=== PATIENT | male | born 1990 | race African-American/Black ===

== ENCOUNTER 2016-11-09 12:54 | Outpatient (CLI) | payer OTHER ==
[2016-11-09] MEDS ORDERED: IOTHALAMATE MEGLUMINE 50 ML VIAL IVP ONE (14:16)
[2016-11-09] MEDS ORDERED: GADOPENTETATE DIMEGLUMINE 5 ML VIAL IVP ONE (14:16)
[2016-11-09] MEDS ORDERED: BUFFERED LIDOCAINE 10 ML SYRINGE IU ONE (14:16)
[2016-11-09] MEDS ORDERED: LIDOCAINE 1% 50 ML MDV SUBQ ONE (14:16)
--- NOTE | 2016-11-09 16:18 | XRAY Report ---
FLUOROSCOPICALLY GUIDED LEFT SHOULDER INJECTION FOR MR ARTHROGRAM: 11/09/2016 CLINICAL INDICATION: History of dislocations, persistent pain. FINDINGS: Following obtaining informed consent, the patient's left shoulder was prepped and draped i n the usual sterile fashion. The skin and soft tissues were anesthetized with lidocaine. A spinal nee dle was directed into the left glenohumeral joint, and following confirmation of needle positioning, a combination of Iodinated contrast, dilute gadolinium, and lidocaine was injected intraarticularly. The patient tolerated the procedure well. No immediate complications. Spot image reveals no evidence of contrast extravasation. IMPRESSION: SUCCESSFUL LEFT SHOULDER INJECTION FOR MR ARTHROGRAM. FLUOROSCOPY TIME: 25 SECONDS; 1 SPOT IMAGE OBTAINED. JOB #: [id number] EXT JOB #:[id number]
--- NOTE | 2016-11-09 16:54 | MRI Report ---
EXAM: LEFT SHOULDER MRI ARTHROGRAM WITH CONTRAST EXAM DATE: 11/09/2016 03:14 PM. CLINICAL HISTORY: Left shoulder pain. Previous dislocation injury in 2012. COMPARISON: Left shoulder radiography from 01/10/2013 and left shoulder MRI arthrogram from 3. TECHNIQUE: Multiplanar, multisequence T1-weighted and fluid-sensitive sequences of the shoulder after an arthrographic injection of dilute gadolinium, dictated under a separate exam. Other: None. FINDINGS: Acromioclavicular Region: The acromion is type II. The acromioclavicular joint is unremarkable. The c oracoacromial and coracoclavicular ligaments are intact. There is no contrast or fluid in the subacro mial/subdeltoid bursa. Glenohumeral Region: No subluxation. No loose bodies. The articular cartilage is unremarkable. The gl enohumeral ligaments and joint capsule are unremarkable. Bone Marrow: Slight focal cortical flattening at the posterior superior aspect of the humeral head, w hich probably represents an old Hill-Sachs lesion. Small subcortical cyst at the posterior superior a spect of the humeral head. No acute fracture. 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 Labrum: As before, the anterior to anterior-inferior aspect of the labrum is irregular consistent wit h chronic injury. No change since the previous study. Biceps Tendon: The previously seen longitudinally oriented partial-thickness tear within the long hea d biceps tendon is no longer seen. The long head biceps tendon appear normal. Musculature/Rotator Cuff: The subscapularis, supraspinatus, infraspinatus, and teres minor tendons ar e intact. No edema or fatty atrophy. Other: The subcutaneous tissues are unremarkable. IMPRESSION: 1. 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 2. Persistent irregularity at the anterior to anterior-inferior aspects of the labrum indicative of c hronic injury. No change since the previous study. 3. Old small Hill-Sachs lesion at the humeral head. 4. The previously seen partial tear within the long head biceps tendon is no longer seen. 5. No rotator cuff tear. [facility] MUSCULOSKE[facility] RADIOLOG[facility] SECTION Referring Provider Line: [phone] SITE ID: [id number]
== END 2016-11-09 12:55 | disposition home or self-care (01) ==
LOC: DI 12:54
PROVIDERS: ATTEND General Practice
DX: M75.82 Other shoulder lesions, left shoulder (principal)
CPT/HCPCS: 23350; 73222; 77002; Q9961

== ENCOUNTER 2018-04-15 09:51 | Outpatient (CLI) | payer OTHER | END 2018-04-15 09:52 | disposition home or self-care (01) | LOC: SC 09:51 | PROVIDERS: ATTEND Internal Medicine Pulmonary Disease | DX: G47.33 Obstructive sleep apnea (adult) (pediatric) (principal) | CPT/HCPCS: 99203; 99212 ==